=== PATIENT | male | born 1970 | race Caucasian/White ===

== ENCOUNTER → 2019-10-13 10:46 | Outpatient (BNVA) | payer OTHER, SELFPAY | PROVIDERS: Family Provider Family Medicine; PCP Nurse Practitioner Family; Visit Provider Nurse Practitioner Family | DX: E11.9 Type 2 diabetes mellitus without complications (principal); I10 Essential (primary) hypertension; Z68.33 Body mass index [BMI] 33.0-33.9, adult | CPT/HCPCS: 80053; 82044; 83036; 84153 ==

== ENCOUNTER → 2020-11-14 10:15 | Outpatient (BNVA) | payer OTHER, MEDICAID, SELFPAY | PROVIDERS: Family Provider Family Medicine; PCP Nurse Practitioner Family; Visit Provider Nurse Practitioner Family | DX: I10 Essential (primary) hypertension (principal); E11.9 Type 2 diabetes mellitus without complications; R79.89 Other specified abnormal findings of blood chemistry; Z00.00 Encounter for general adult medical examination without abnormal findings; Z68.33 Body mass index [BMI] 33.0-33.9, adult | CPT/HCPCS: 80053; 80061; 82043; 83036; 84403; 84443 ==

== ENCOUNTER → 2021-06-18 09:13 | Outpatient (BNVA) | payer OTHER, MEDICAID, SELFPAY | PROVIDERS: Family Provider Family Medicine; PCP Nurse Practitioner Family; Visit Provider Family Medicine | DX: E11.9 Type 2 diabetes mellitus without complications (principal); M25.511 Pain in right shoulder; M25.512 Pain in left shoulder; J01.90 Acute sinusitis, unspecified; I10 Essential (primary) hypertension; R79.89 Other specified abnormal findings of blood chemistry; Z79.899 Other long term (current) drug therapy | CPT/HCPCS: 80053; 83036; 84403; 84439; 84443 ==

== ENCOUNTER 2021-06-25 06:00 | Outpatient (RCR) | payer OTHER, SELFPAY | END 2021-07-02 23:59 | disposition home or self-care (01) | LOC: GPT 06:00 | PROVIDERS: PCP Nurse Practitioner Family; Referring Provider Family Medicine; Visit Provider Family Medicine | DX: M25.511 Pain in right shoulder (principal); M25.512 Pain in left shoulder | CPT/HCPCS: 97110; 97140; 97161; G0283 ==

== ENCOUNTER 2021-07-03 06:00 | Outpatient (RCR) | payer OTHER, SELFPAY | END 2021-07-30 23:59 | disposition home or self-care (01) | LOC: GPT 06:00 | PROVIDERS: PCP Nurse Practitioner Family; Visit Provider Family Medicine | DX: M25.511 Pain in right shoulder (principal); M25.512 Pain in left shoulder | CPT/HCPCS: 97110; 97140; G0283 ==

== ENCOUNTER → 2021-09-24 09:41 | Outpatient (BNVA) | payer OTHER, SELFPAY | PROVIDERS: PCP Nurse Practitioner Family; Visit Provider Family Medicine | DX: E11.9 Type 2 diabetes mellitus without complications (principal); R79.89 Other specified abnormal findings of blood chemistry | CPT/HCPCS: 83036; 84403; 84439; 84443; 86376 ==

== ENCOUNTER → 2022-01-09 10:02 | Outpatient (BNVA) | payer OTHER, SELFPAY | PROVIDERS: PCP Nurse Practitioner Family; Visit Provider Family Medicine | DX: R79.89 Other specified abnormal findings of blood chemistry (principal); E11.9 Type 2 diabetes mellitus without complications | CPT/HCPCS: 80061; 83036; 84403 ==

== ENCOUNTER → 2022-08-28 10:01 | Outpatient (BNVA) | payer OTHER, SELFPAY | PROVIDERS: PCP Nurse Practitioner Family; Visit Provider Family Medicine | DX: E11.9 Type 2 diabetes mellitus without complications (principal); I10 Essential (primary) hypertension; R79.89 Other specified abnormal findings of blood chemistry | CPT/HCPCS: 80053; 80061; 83036; 84403 ==

== ENCOUNTER → 2022-09-05 15:05 | Outpatient (BNVA) | payer OTHER, SELFPAY | PROVIDERS: PCP Nurse Practitioner Family; Visit Provider Family Medicine | DX: R79.89 Other specified abnormal findings of blood chemistry (principal) | CPT/HCPCS: 84439; 84443 ==

== ENCOUNTER 2022-09-20 07:32 | Outpatient (CLI) | payer OTHER, SELFPAY ==
--- NOTE | 2022-09-20 08:07 | MM_ITS ---
WS: [id number] DIAGNOSTIC BILATERAL DIGITAL BREAST TOMOSYNTHESIS MAMMOGRAPHY WITH CAD LEFT breast ultrasound, limited HISTORY: Abrasion and palpable area LEFT breast. 52-year-old male. COMPARISON: None available. TECHNIQUE: Bilateral craniocaudad, mediolateral oblique, and mediolateral views are submitted with to mosbacilio and JERRY. Computer aided detection utilized. Breast composition: The breasts are almost entirely fatty. Marker is placed along the lateral aspect of the LEFT breast near the area look. No underlying mass or soft tissue thickening. No suspicious ca lcifications within either breast. No nipple retraction. LEFT breast ultrasound, limited. No mass or increased vascularity. No skin thickening or gynecomastia. MM/[place] [id number] IMPRESSION: BI-RADS: 2-Benign FOLLOW UP: See Report No mammographic or ultrasound abnormality within the LEFT breast to correspond to the palpable area. No additional imaging necessary.
== END 2022-09-20 07:33 | disposition home or self-care (01) ==
LOC: RAD 07:39
PROVIDERS: PCP Nurse Practitioner Family; Visit Provider Family Medicine
DX: S20.112A Abrasion of breast, left breast, initial encounter (principal); X58.XXXA Exposure to other specified factors, initial encounter; Y93.9 Activity, unspecified; Y92.9 Unspecified place or not applicable; Y99.9 Unspecified external cause status
CPT/HCPCS: 76642; 77062; G0279

== ENCOUNTER → 2022-12-11 16:52 | Outpatient (BNVA) | payer OTHER, SELFPAY | PROVIDERS: PCP Nurse Practitioner Family; Visit Provider Family Medicine | DX: R79.89 Other specified abnormal findings of blood chemistry (principal) | CPT/HCPCS: 84403 ==

== ENCOUNTER → 2023-06-18 13:21 | Outpatient (BNVA) | payer SELFPAY | PROVIDERS: PCP Nurse Practitioner Family; Visit Provider Nurse Practitioner Family | DX: S69.92XA Unspecified injury of left wrist, hand and finger(s), initial encounter (principal); S62.663A Nondisplaced fracture of distal phalanx of left middle finger, initial encounter for closed fracture; X58.XXXA Exposure to other specified factors, initial encounter | CPT/HCPCS: 73130 ==

== ENCOUNTER → 2023-09-03 09:00 | Outpatient (BNVA) | payer BC, SELFPAY | PROVIDERS: PCP Nurse Practitioner Family; Visit Provider Family Medicine | DX: E11.9 Type 2 diabetes mellitus without complications (principal); R79.89 Other specified abnormal findings of blood chemistry | CPT/HCPCS: 80053; 82040; 83036; 84270; 84403; 85025 ==

== ENCOUNTER → 2023-12-03 09:20 | Outpatient (BNVA) | payer BC, SELFPAY | PROVIDERS: PCP Nurse Practitioner Family; Visit Provider Family Medicine | DX: E11.9 Type 2 diabetes mellitus without complications (principal); R79.89 Other specified abnormal findings of blood chemistry | CPT/HCPCS: 83036; 84439; 84443 ==

== ENCOUNTER → 2023-12-29 11:00 | Outpatient (BNVA) | payer BC, SELFPAY | PROVIDERS: PCP Nurse Practitioner Family; Visit Provider Nurse Practitioner Family | DX: R31.9 Hematuria, unspecified (principal) | CPT/HCPCS: 81000; 87086 ==

== ENCOUNTER → 2024-02-09 11:18 | Outpatient (BNVA) | payer BC, SELFPAY | PROVIDERS: PCP Nurse Practitioner Family; Visit Provider Nurse Practitioner Family | DX: R79.89 Other specified abnormal findings of blood chemistry (principal) | CPT/HCPCS: 84439; 84443 ==

== ENCOUNTER → 2024-05-06 10:04 | Outpatient (BNVA) | payer BC, SELFPAY | PROVIDERS: PCP Nurse Practitioner Family; Visit Provider Family Medicine | DX: R30.0 Dysuria (principal); R35.0 Frequency of micturition | CPT/HCPCS: 81000; 87086 ==

== ENCOUNTER → 2024-05-11 08:48 | Outpatient (BNVA) | payer BC, SELFPAY | PROVIDERS: PCP Nurse Practitioner Family; Visit Provider Family Medicine | DX: Z12.5 Encounter for screening for malignant neoplasm of prostate (principal); R79.89 Other specified abnormal findings of blood chemistry; I10 Essential (primary) hypertension; E11.9 Type 2 diabetes mellitus without complications; E03.9 Hypothyroidism, unspecified; E29.1 Testicular hypofunction; E55.9 Vitamin D deficiency, unspecified; R59.0 Localized enlarged lymph nodes | CPT/HCPCS: 80053; 80061; 82306; 82607; 83036; 84403; 84439; 84443; 85025; 86705; 86706; 86709; 86803; 87340; G0103 ==

== ENCOUNTER → 2024-05-19 09:10 | Outpatient (BNVA) | payer BC, SELFPAY | PROVIDERS: PCP Nurse Practitioner Family; Visit Provider Family Medicine | DX: M54.50 Low back pain, unspecified (principal); G89.29 Other chronic pain; M25.511 Pain in right shoulder; M25.512 Pain in left shoulder; M25.551 Pain in right hip | CPT/HCPCS: 72100; 73502 ==

== ENCOUNTER → 2024-05-24 08:46 | Outpatient (BNVA) | payer BC, SELFPAY | PROVIDERS: PCP Nurse Practitioner Family; Visit Provider Family Medicine | DX: D48.9 Neoplasm of uncertain behavior, unspecified (principal); L82.1 Other seborrheic keratosis; L81.4 Other melanin hyperpigmentation | CPT/HCPCS: 88305 ==

== ENCOUNTER → 2024-09-20 11:27 | Outpatient (BNVA) | payer BC, SELFPAY | PROVIDERS: PCP Family Medicine; Visit Provider Family Medicine | DX: Z12.5 Encounter for screening for malignant neoplasm of prostate (principal); M46.1 Sacroiliitis, not elsewhere classified; M54.50 Low back pain, unspecified; G89.29 Other chronic pain; M54.2 Cervicalgia; R25.1 Tremor, unspecified; E03.9 Hypothyroidism, unspecified; R79.89 Other specified abnormal findings of blood chemistry; N40.0 Benign prostatic hyperplasia without lower urinary tract symptoms; E55.9 Vitamin D deficiency, unspecified; E29.1 Testicular hypofunction; W57.XXXA Bitten or stung by nonvenomous insect and other nonvenomous arthropods, initial encounter | CPT/HCPCS: 80053; 82306; 82607; 82728; 82746; 83540; 83735; 84403; 84439; 84443; 84550; 85025; 85651; 86038; 86140; 86431; 86618; 86666; 86757; 86812; G0103 ==

== ENCOUNTER → 2024-12-06 12:46 | Outpatient (BNVA) | payer BC, SELFPAY | PROVIDERS: PCP Family Medicine; Referring Provider Family Medicine; Visit Provider Internal Medicine Rheumatology | DX: M77.32 Calcaneal spur, left foot (principal); Z79.899 Other long term (current) drug therapy | CPT/HCPCS: 36415; 73630; 80076; 82306; 82565; 83520; 85025; 85651; 86140; 86160; 86162; 86200; 86235; 86255; 86376; 86480; 86704; 86803; 87340 ==

== ENCOUNTER 2025-01-18 10:18 | Outpatient (CLI) | payer BC, SELFPAY ==
[2025-01-18 11:14] LABS: Hematocrit 47.8 % (37-53); Hemoglobin 15.20 g/dL (11.27-16.99); Mean Corpuscular HGB Conc 31.8 g/dL (30-55); Mean Corpuscular Hemoglobin 27.6 pg (27-33); Mean Corpuscular Volume 86.9 fl (82-101); Nucleated Red Blood Cells % 0 %; Platelet Count 230 10^3/cmm (157-399); Red Blood Count 5.50 10^6/uL (3.85-5.65); White Blood Count 7.08 10^3/uL (3.29-11.43)
[2025-01-18 11:32] LABS: Alanine Aminotransferase 43 U/L (0-41); Albumin Level 4.5 g/dL (3.5-5.2); Alkaline Phosphatase 98 U/L (40-130); Aspartate Amino Transferase 27 U/L (0-40); Globulin 3.0 g/dL (1.3-4.6); Total Protein 7.5 g/dL (6.6-8.7)
== END 2025-01-18 10:19 | disposition home or self-care (01) ==
PROVIDERS: PCP Family Medicine; Visit Provider Internal Medicine Rheumatology
DX: Z79.899 Other long term (current) drug therapy (principal)
CPT/HCPCS: 36415; 80076; 82565; 85025; 85651; 86140

== ENCOUNTER → 2025-01-26 08:30 | Outpatient (BNVA) | payer BC, SELFPAY | PROVIDERS: PCP Family Medicine; Visit Provider Family Medicine | DX: I10 Essential (primary) hypertension (principal); E11.9 Type 2 diabetes mellitus without complications; E03.9 Hypothyroidism, unspecified; R79.89 Other specified abnormal findings of blood chemistry; R30.0 Dysuria; E29.1 Testicular hypofunction | CPT/HCPCS: 80053; 81000; 82607; 83036; 84403; 84439; 84443 ==

== ENCOUNTER 2025-02-14 12:40 | Outpatient (CLI) | payer BC, SELFPAY ==
--- NOTE | 2025-02-14 13:00 | MR_ITS ---
WS: [id number] MRI LUMBAR SPINE NONCONTRAST TECHNIQUE: Sagittal T1, T2 and STIR imaging. Axial T1 and T2 imaging. CLINICAL INFORMATION: M54.41 - Lumbago with sciatica, right side COMPARISON: None. FINDINGS: Mild lumbar curve. No acute compression. No high-grade central canal stenosis. Chronic anterior wedging at L1 with endplate Schmorl's nodes. Endplate Schmorl's node inferior endplate L4. L1-L2: Mild facet arthropathy. No significant disc bulging. Spinal canal and foramen are patent. L2-L3: Mild annular bulging. Mild facet arthropathy. Spinal canal and foramen are patent. L3-L4: Mild annular bulging with slight effacement of the ventral thecal sac. Mild central canal stenosis. Narrowing of the LEFT greater than RIGHT subarticular recess. Mild LEFT foraminal narrowing. Moderate facet arthropathy. L4-L5: Shallow central and LEFT paracentral protrusion. Slight impingement on the LEFT greater than RIGHT subarticular recess. Moderate facet arthropathy. Mild LEFT greater than RIGHT foraminal narrowing. L5-S1: Mild annular bulging. Spinal canal and foramen are patent. Moderate facet arthropathy. Visualized pelvic bony structures: Normal. Paravertebral soft tissues: Normal. Partially visualized RIGHT peripelvic renal cyst or dilated renal pelvis. This could further evaluated with CT. MR/MR lumbar spine wo con* [id number] IMPRESSION: 1. Chronic anterior wedging at L1 with endplate Schmorl's node. 2. Mild central canal stenosis L3-4 with narrowing of the LEFT greater than RI GHT subarticular recess. 3. Disc bulge L4-5 impinges the LEFT greater than RIGHT subarticular recess an d traversing L5 nerve roots. 4. Mild foraminal narrowing described above. 5. Partially visualized RIGHT peripelvic renal cyst or dilated renal pelvis. T his could further evaluated with contrast-enhanced CT abdomen and pelvis.
== END 2025-02-14 12:41 | disposition home or self-care (01) ==
LOC: RAD 12:41
PROVIDERS: PCP Family Medicine; Visit Provider Family Medicine
DX: M46.1 Sacroiliitis, not elsewhere classified (principal); S32.000A Wedge compression fracture of unspecified lumbar vertebra, initial encounter for closed fracture; X58.XXXA Exposure to other specified factors, initial encounter; M51.46 Schmorl's nodes, lumbar region; M48.061 Spinal stenosis, lumbar region without neurogenic claudication; M51.16 Intervertebral disc disorders with radiculopathy, lumbar region; N28.1 Cyst of kidney, acquired
CPT/HCPCS: 72148

== ENCOUNTER → 2025-02-18 08:35 | Outpatient (BNVA) | payer BC, SELFPAY | PROVIDERS: PCP Family Medicine; Visit Provider Nurse Practitioner Family | DX: N28.1 Cyst of kidney, acquired (principal); N28.89 Other specified disorders of kidney and ureter | CPT/HCPCS: 80048 ==

== ENCOUNTER 2025-02-24 14:21 | Outpatient (CLI) | payer BC, SELFPAY ==
--- NOTE | 2025-02-24 14:30 | CT_ITS ---
WS: [id number] CT ABDOMEN AND PELVIS WITH CONTRAST HISTORY: N28.89 - Other specified disorders of kidney and ureter TECHNIQUE: Imaging performed of the abdomen and pelvis with IV contrast. Single phase imaging of the abdomen. Coronal and sagittal reformats are submitted. All CT scans at [facility] use at least one of these dose optimization techniques: automated exposure control; mA and/or kV adjustment per patient size (includes targeted exams where dose is matched to clinical indication); or iterative reconstruction. IV CONTRAST: Omnipaque 350; 100 mL IV. Oral contrast: No DLP: 859.46 mGy.cm COMPARISON: MRI lumbar spine 02/14/2025 Lower thorax: Lung bases are clear. Heart is normal size. No hiatal hernia. Liver/biliary system: Normal size liver with granuloma. Gallbladder: Mildly contracted gallbladder. No adjacent inflammation. Pancreas: Normal size pancreas and pancreatic duct. No adjacent inflammation. Spleen: Normal size spleen. No mass or infarct. Adrenal glands: Normal. Right kidney: Very mild perinephric stranding. No renal obstruction. Slightly lobulated cyst from the lower medial kidney measures 4.0 x 3.8 x 4.1 cm. This is a cortical cyst and corresponds to the finding seen on the recent MRI. There is no renal obstruction. Left kidney: Normal. Aorta: Mild atherosclerosis with no aneurysm. Lymphadenopathy: None. Free fluid: None. GI tract: Fluid distended stomach. No small bowel obstruction. No colon obstruction. Normal appendix. Mild sigmoid diverticulosis without acute diverticulitis. Abdominal wall: Fat containing umbilical hernia. Pelvis: No free fluid or adenopathy within the pelvis. Bones: Mild anterior wedging of L1. No destructive bone lesions. CT/CT abdomen pelvis w con* [id number] IMPRESSION: 1. No hydronephrosis RIGHT kidney. 2. Simple cyst from the medial lower pole RIGHT kidney measures 4.0 x 3.8 x 4. 1 cm. Corresponds to the recent MRI findings. 3. No solid renal mass. 4. Mild diverticulosis. 5. No acute abdominal or pelvic abnormalities.
[2025-02-24] MEDS: iohexol 350 mg/mL 500 mL Btl (per mL) IV (14:48)
== END 2025-02-24 14:22 | disposition home or self-care (01) ==
LOC: RAD 14:22
PROVIDERS: PCP Family Medicine; Visit Provider Family Medicine
DX: N28.89 Other specified disorders of kidney and ureter (principal); N28.1 Cyst of kidney, acquired
CPT/HCPCS: 74177

== ENCOUNTER → 2025-05-10 15:25 | Outpatient (BNVA) | payer BC, SELFPAY | PROVIDERS: PCP Family Medicine; Visit Provider Orthopaedic Surgery | DX: Z01.818 Encounter for other preprocedural examination (principal); M48.061 Spinal stenosis, lumbar region without neurogenic claudication | CPT/HCPCS: 36415; 72110; 80053; 81001; 85025 ==

== ENCOUNTER → 2025-05-12 15:01 | Outpatient (BNVA) | payer BC, SELFPAY | PROVIDERS: PCP Family Medicine; Visit Provider Internal Medicine Cardiovascular Disease | DX: R07.9 Chest pain, unspecified (principal) | CPT/HCPCS: 93005 ==

== ENCOUNTER 2025-05-19 10:07 | Outpatient (CLI) | payer BC, SELFPAY ==
--- NOTE | 2025-05-19 10:00 | USCV_ITS ---
Corby Mookie Age: 55 Gender: M : 1970 Exam Date: 05/19/2025 10:37 Ordering Phys: Carter Carlton MD ([email or web address]) Technologist: Exam Location: [facility] – [place] Indication: pre op BP: 132 / 75 HR: 82 Rhythm: Sinus Technical Quality: MEASUREMENTS (Male / Female) Normal Values 2D ECHO LV Diastolic Diameter PLAX 3.7 cm 4.2 - 5.9 / 3.9 - 5.3 cm IVS Diastolic Thickness 1.3 cm 0.6 - 1.0 / 0.6 - 0.9 cm IVS Systolic Thickness 1.8 cm LVPW Diastolic Thickness 1.2 cm 0.6 - 1.0 / 0.6 - 0.9 cm LVPW Systolic Thickness 1.7 cm LVOT Diameter 2.3 cm LV Ejection Fraction 2D Teich 64.8 % LV Ejection Fraction MOD 4C 68.1 % LV Ejection Fraction MOD 2C 69.7 % LV Ejection Fraction 2C AL 71.8 % LA Diameter 3.8 cm RA Systolic Volume 4C AL 52.1 ml RA Systolic Volume 4C MOD 50.0 ml Aorta at Sinotubular Diameter 3.1 cm IVC Diameter 2.4 cm M-MODE LA Ao Ratio MM 1.4 AV Cusp Separation MM 3.0 cm DOPPLER AV Peak Velocity 118.0 cm/s LVOT Peak Velocity 72.0 cm/s AV Area Cont Eq vti 2.9 cm squared AV Area Cont Eq pk 2.6 cm squared MV Peak Velocity 82.0 cm/s MV Area PHT 2.8 cm squared Mitral E to A Ratio 1.0 TV Peak Velocity 157.5 cm/s TR Peak Velocity 163.0 cm/s TR Peak Gradient 10.6 mmHg TV Peak E Velocity 75.0 cm/s PV Peak Velocity 117.0 cm/s FINDINGS Left Ventricle Normal left ventricular systolic function and normal left ventricular cavity size. Left ventricular ejection fraction 65%. Normal left ventricular diastolic function. Mild concentric left ventricular hypertrophy Right Ventricle Normal right ventricular size and systolic function. RVSP could not be calculated due to incomplete tricuspid regurgitation velocity profile. Right Atrium Normal right atrial size. Left Atrium Normal left atrial size. IA Septum Normal appearance of the interatrial septum. Mitral Valve Normal mitral valve structure. No mitral valve stenosis or regurgitation. Aortic Valve Normal aortic valve structure. No aortic valve stenosis or regurgitation. Tricuspid Valve Normal tricuspid valve structure. No tricuspid valve stenosis or regurgitation. Pulmonic Valve Normal pulmonic valve structure. No pulmonic valve stenosis or regurgitation. Pericardium No pericardial effusion. Aorta Normal diameter of the aortic root and ascending thoracic aorta. IVC Mildly dilated IVC with greater than 50% collapse with inspiration. Estimated right atrial pressure 8 mmHg. CONCLUSIONS Normal left ventricular cavity size and systolic function, EF 65% Mild concentric left ventricular hypertrophy. Normal right ventricular size and systolic function. No significant valvular abnormalities. Carter Carlton MD, FACC (Electronically Signed) Final Date: 01 June 2025 17:28 S
== END 2025-05-19 10:08 | disposition home or self-care (01) ==
LOC: RAD 10:08
PROVIDERS: PCP Family Medicine; Visit Provider Internal Medicine Cardiovascular Disease
DX: I48.91 Unspecified atrial fibrillation (principal); I51.7 Cardiomegaly; R93.1 Abnormal findings on diagnostic imaging of heart and coronary circulation; I86.8 Varicose veins of other specified sites
CPT/HCPCS: 93306

== ENCOUNTER 2025-05-23 10:09 | Outpatient (CLI) | payer BC, SELFPAY ==
[2025-05-23 11:04] LABS: Hematocrit 45.5 % (37-53); Hemoglobin 14.70 g/dL (11.27-16.99); Mean Corpuscular HGB Conc 32.3 g/dL (30-55); Mean Corpuscular Hemoglobin 27.4 pg (27-33); Mean Corpuscular Volume 84.7 fl (82-101); Nucleated Red Blood Cells % 0 %; Platelet Count 213 10^3/cmm (157-399); Red Blood Count 5.37 10^6/uL (3.85-5.65); White Blood Count 6.19 10^3/uL (3.29-11.43)
[2025-05-23 11:26] LABS: Alanine Aminotransferase 41 U/L (0-41); Albumin Level 4.6 g/dL (3.5-5.2); Alkaline Phosphatase 107 U/L (40-130); Aspartate Amino Transferase 27 U/L (0-40); Globulin 2.9 g/dL (1.3-4.6); Total Protein 7.5 g/dL (6.6-8.7)
== END 2025-05-23 10:10 | disposition home or self-care (01) ==
PROVIDERS: PCP Family Medicine; Visit Provider Internal Medicine Rheumatology
DX: Z79.899 Other long term (current) drug therapy (principal)
CPT/HCPCS: 36415; 80076; 82565; 85025; 85651; 86140

== ENCOUNTER 2025-06-01 05:37 | Day surgery (SDC) | payer BC, SELFPAY ==
[2025-06-01] VITALS (10 sets, daily range): BP systolic 102–142; BP diastolic 59–86; PULSE 67–80; RESP 17–23; TEMP 36.5–37; O2SAT 92–96; BMI 32.9
--- NOTE | 2025-06-01 06:01 | SC_ITS ---
WS: [id number] C-arm fluoroscopy for lumbar decompression, 06/01/2025 Clinical Data: Surgery Comparison: Lumbar spine, 05/10/2025 Findings: Dr. Osborne performed a lumbar decompression. SC/C-arm Fluoroscopy [id number] Impression: Lumbar decompression.
--- NOTE | 2025-06-01 06:32 | W.PM.OPSUD ---
Surgery/Procedure H&P Update DATE OF PROCEDURE: June 01, 2025 DATE H&P PERFORMED: 05/10/25 H&P UPDATE INFORMATION: I have reviewed H&P completed within last 30 days, I have examined patient prior to procedure and No changes to prior documentation PREOP DIAGNOSIS: Lumbar stenosis with neurogenic claudication PLANNED PROCEDURE: Operation Date: 06/01/25 07:00 Proposed Procedures p Lumbar Spine Decompression Lumbar Decompression(Not Applicable) - Luca Osborne DO
[2025-06-01] MEDS: ceFAZolin 2,000 mg SDV 2000 MG IVP (07:00)
--- NOTE | 2025-06-01 07:06 | ANES.PREANE2 ---
Pre-Anesthetic Assessment Height/Weight: Height 1.83 m Weight 110.223 kg Temp Pulse Resp BP Pulse Ox O2 Del Method 98.3 F 80 18 142/86 96 Room Air 06/01/25 06:12 06/01/25 06:12 06/01/25 06:12 06/01/25 06:12 06/01/25 06:12 06/01/25 06:12 Preop Diagnosis: Lumbar stenosis with neurogenic claudication Operation Date: 06/01/25 07:00 Proposed Procedures p Lumbar Spine Decompression Lumbar Decompression(Not Applicable) - Luca Osborne, DO Familial anesthetic complications: none Was Beta Alireza taken within 24 hours: N/A Was Clonidine taken within 24 hours: N/A Last intake: Intake Last Liquid Date 05/31/25 Last Liquid Time 22:00 Last Solid Date 05/31/25 Last Solid Time 22:00 Social No alcohol and No tobacco Exam alert, oriented x 3, clear to auscultation bilaterally and regular rate & rhythm Airway Mallampati: Class IV Comments: Comments: full montalvo CV/HEM Atrial Fibrillation and Hypertension Metabolic Diabetes Mellitus, Morbid Obesity and Thyroid Disease Anesthetic Plan ASA status: 4 Anesthesia: General Risk of > 500 ml blood loss (7ml/kg in children): No Medications/Allergies Home Medications ?Medication ?Instructions ?Recorded ?Confirmed ?Last Taken ?Type losartan 25 mg tablet 25 mg PO DAILY #90 tabs 10/04/24 05/31/25 05/31/25 Rx testosterone 50 mg/5 gram (1 %) 2 tube transdermal QAM #300 grams 02/07/25 05/31/25 05/31/25 Rx transdermal gel Dexcom G7 Sensor (blood-glucose #3 ea 02/14/25 05/31/25 Unknown Rx sensor) blood-glucose,security patrol officer,cont #1 ea 02/14/25 05/31/25 Unknown Rx (Dexcom G7 Orthopedic Physician) leflunomide 20 mg tablet 20 mg PO DAILY #90 tabs 04/26/25 05/31/25 05/23/25 Rx sulfasalazine 500 mg tablet 1 g (2 x 500 mg) PO BID #120 tabs 04/26/25 05/31/25 05/24/25 Rx aspirin 325 mg tablet 325 mg PO DAILY #90 tabs 05/12/25 05/31/25 05/24/25 Rx Mounjaro 2.5 mg/0.5 mL 2.5 mg (0.5 mL) SUBCUT .q7days #2 05/23/25 05/31/25 Unknown Rx subcutaneous pen injector mL (tirzepatide) diazepam 10 mg tablet (Valium) 10 mg PO DAILY PRN anxiety #14 tabs 05/23/25 05/31/25 05/31/25 Rx cyclobenzaprine 5 mg tablet 5 mg PO DAILY PRN muscle spams 05/31/25 05/31/25 Unknown History glipizide 10 mg tablet 20 mg PO BID 05/31/25 05/31/25 05/31/25 History levothyroxine 25 mcg tablet 25 mcg PO DAILY 05/31/25 05/31/25 05/31/25 History meloxicam 15 mg tablet 15 mg PO DAILY 05/31/25 05/31/25 05/24/25 History metformin 1,000 mg tablet 1,000 mg PO BID 05/31/25 05/31/25 05/31/25 History metoprolol succinate 25 mg 25 mg PO DAILY 05/31/25 06/01/25 06/01/25 History tablet,extended release 24 hr ropinirole 1 mg tablet 1 mg PO BEDTIME 05/31/25 05/31/25 05/31/25 History tamsulosin 0.4 mg capsule 0.4 mg PO DAILY 05/31/25 05/31/25 05/31/25 History Allergies Allergy/AdvReac Type Severity Reaction Status Date / Time Penicillins Allergy Unknown Verified 05/23/25 08:37 Current Medications Generic Name Dose Route Start Last Admin Trade Name Freq PRN Reason Stop Dose Admin Sodium Chloride 1,000 mls @ 30 mls/hr 06/01/25 06:15 06/01/25 06:44 Sodium Chloride 0.9% IV 06/02/25 06:14 30 mls/hr .Q24H FAIZA Administration PFSH Anesthesia Medical History (Updated 05/23/25 @ 08:52 by Alberto Salinas DO) Chronic bilateral low back pain with bilateral sciatica Immunization counseling Hypogonadism in male High risk medication use Polyarthralgia Afib Essential hypertension Type 2 diabetes mellitus without complication, with long-term current use of insulin Surgical History History of removal of testicle 30 years ago Social History Smoking and tobacco/nicotine status: former use of tobacco/nicotine Alcohol intake: current Alcohol intake frequency: holidays/special occasions only Substance/Drug Use: never Adopted: No Caregiver/support person: No Lives independently: Yes
[2025-06-01] MEDS: lidocaine-epi 1% 20 mL INJ 10 ML INJECTION (07:46)
--- NOTE | 2025-06-01 08:28 | P.OP_ITS ---
Operative Report Date of procedure: June 01, 2025 Pre-op diagnosis: Lumbar stenosis with neurogenic claudication Post-op diagnosis: same Procedure done: 1. L3/4 laminectomy partial facetectomy 2. L4/5 laminectomy partial facetectomy Surgeon: Luca Osborne DO Estimated blood loss (mL): 25 Procedure: 1. L3/4 laminectomy partial facetectomy 2. L4/5 laminectomy partial facetectomy Patient is brought to the operative suite. After undergoing anesthesia they are placed in the prone position. All areas of impingement are well padded. Patient is then prepped and draped in the normal sterile fashion. A skin incision is made over the L3/4 level. This is confirmed under c-arm olinda dance. A series of dilators are passed and the tubular retractor is docked on the L3 lamina. A bovie is used to clear the soft tissue off the lamina and the L 3/4 facet joint. A high speed sawyer is then used to perform the laminectomy and take down the medial aspect of the L 3/4 facet joint. A kerrison rongeure was then used to take down the remaining lamina and smooth the edge of the laminectomy up to the point where the ligamentum flavum attaches. Attention was then brought to the medial aspect of the facet joint. The remaining medial aspect of the superior and inferior aspect of the facet joint were taken down with the kerrison from the pedicle of L3 to L 4. The facet joint had significant hypertrophy. Attention was then brought to the Ligamentum Flavum. The ligament was taken aj n from the lamina of L3 to L4 and out medially to the remaining facet joint. The ligament was thick. The dura was then exposed. The dura was in good repair. The L3 nerve was then traced with a curette out the L3/4 foramen and found to be adequately decompressed. The L4 nerve was traced with a curette around the L4 pedicle. The lateral recess was opened with a kerrison helping to further deco mpress the L4 nerve. Wound is then irrigated copiously with saline and surgiflo is used to stop any bleeding. The tubular retractor is removed A skin incision is made over the L4/5 level. This is confirmed under c-arm guidance. A series of dilators are passed and the tubular retractor is docked on the L4 lamina. A bovie is used to clear the soft tissue off the lamina and the L 4/5 facet joint. A high speed sawyer is then used to perform the laminectomy and take down the medial aspect of the L 4/5 facet joint. A kerrison rongeure was then used to take down the remaining lamina and smooth the edge of the laminectomy up to the point where the ligamentum flavum attaches. Attention was then brought to the medial aspect of the facet joint. The remaining medial aspect of the superior and inferior aspect of the facet joint were taken down with the kerrison from the pedicle of L4 to L 5. The facet joint had significant hypertrophy. Attention was then brought to the Ligamentum Flavum. The ligament was taken down from the lamina of L4 to L5 and out medially to the remaining facet joint. The ligament was thick. The dura was then exposed. The dura was in good repair. The L4 nerve was then traced with a curette out the L4/5 foramen and found to be adequately decompressed. The L5 nerve was traced with a curette around the L5 pedicle. The lateral recess was opened with a kerrison helping to further decompress the L5 nerve. Wound is then irrigated copiously with saline and surgiflo is used to stop any bleeding. The tubular retractor is removed and the wound is closed with vicryl and monocryl suture. Steri strips were applied. A sterile dressing is then placed. Patient was then placed in the supine position and transferred to the PACU in stable condition.
[2025-06-01] MEDS: HYDROcodone-acetaminophen 5-325 mg Tablet 1 TAB PO (09:13)
--- NOTE | 2025-06-01 09:40 | ANE.PACU2 ---
Inpatient post-anesthesia follow up: Airway intact: Yes Vital signs: Temperature 97.7 F Pulse Rate 68 Respiratory Rate 17 Blood Pressure 116/68 Pulse Oximetry 93 Oxygen Delivery Me thod Room Air Oxygen Flow Rate 8 Fraction of Inspir ed Oxygen Hydration adequate: Yes Nausea and vomiting: No Pain level: 1 Mental status: Baseline
--- NOTE | 2025-06-01 15:13 | XR_ITS ---
WS: [email or web address] C-arm fluoroscopy for lumbar decompression, 06/01/2025 Clinical Data: Surgery Comparison: Lumbar spine, 05/10/2025 Findings: Dr. Osborne performed a lumbar decompression. XR/XR lumbar spine 2-3V* [id number] Impression: Lumbar decompression.
== END 2025-06-01 09:40 | disposition home or self-care (01) ==
PROVIDERS: PCP Family Medicine; Visit Provider Orthopaedic Surgery
PROC: (CPT 63005; principal; 2025-06-01 07:00)
DX: M48.062 Spinal stenosis, lumbar region with neurogenic claudication (principal); I48.91 Unspecified atrial fibrillation; I10 Essential (primary) hypertension; E11.9 Type 2 diabetes mellitus without complications; E66.01 Morbid (severe) obesity due to excess calories; Z68.33 Body mass index [BMI] 33.0-33.9, adult; E07.9 Disorder of thyroid, unspecified; Z79.84 Long term (current) use of oral hypoglycemic drugs; Z79.82 Long term (current) use of aspirin; Z79.4 Long term (current) use of insulin; Z87.891 Personal history of nicotine dependence
CPT/HCPCS: 63047; 63048; 36416; 72100; 76000; 82962; A4649; J0131; J0690; J1100; J2250; J2371; J2405; J2704; J3010; J3490; J7030; J9999